=== PATIENT | male | born 1950 | race Caucasian/White ===

== ENCOUNTER 2018-04-27 06:14 | Day surgery (SDC) | payer MEDICARE, BC ==
[2018-04-27] MEDS: DICLOFENAC 0.1% LEFT EYE (07:48)
[2018-04-27] MEDS: MOXIFLOXACIN 0.5% 3 ML OPH OPER (07:48)
[2018-04-27] MEDS: CYCLOPENTOLATE/PHENYLEPH 2 ML OPH OPER (07:48)
[2018-04-27] MEDS: SOD CHLORIDE 0.9% 1,000 ML IV (07:49)
[2018-04-27] MEDS: TROPICAMIDE 1% 3 ML OPH OPER (07:49)
[2018-04-27] MEDS: DICLOFENAC 0.1% 2.5 ML OPH OPER (07:58)
[2018-04-27] MEDS: CEFAZOLIN 1 GM INJ INJ ×2 (09:20)
[2018-04-27] MEDS: DEXAMETHASONE 4 MG/ML 1 ML INJ INJ ×2 (09:20)
[2018-04-27] MEDS: CARBACHOL 0.01% 1.5 ML OPH INJ IO ×2 (09:20)
[2018-04-27] MEDS ORDERED: ETOMIDATE 20 MG INJ (09:45)
[2018-04-27] MEDS ORDERED: hydrALAzine 20 MG INJ (09:45)
[2018-04-27] MEDS ORDERED: LIDOCAINE 2% (SDV) 5 ML INJ (09:45)
[2018-04-27] MEDS ORDERED: MIDAZOLAM 1 MG/ML 2 ML INJ (09:50)
[2018-04-27] MEDS ORDERED: HYDROmorphONE 1 MG/5 ML IV SYRINGE IV ×2 (10:00)
[2018-04-27] MEDS ORDERED: LABETALOL HCL 20MG INJ (10:05)
[2018-04-27] MEDS ORDERED: ACETAZOLAMIDE 250 MG TAB PO (21:00)
== END 2018-04-27 12:00 | disposition home or self-care (01) ==
LOC: SDS 06:14
DX: H25.042 Posterior subcapsular polar age-related cataract, left eye (principal); I10 Essential (primary) hypertension
CPT/HCPCS: 66984